=== PATIENT | male | born 1960 | race Caucasian/White ===

== ENCOUNTER 2020-10-17 17:49 | Outpatient (REF) | payer MEDICAID, SELFPAY ==
[2020-10-17 15:47] LABS: Calculated LDL 93 mg/dL (<100); Cholesterol 178 mg/dL (<200); HDL Cholesterol 30 mg/dL (40-60); Triglyceride 279 mg/dL (<150)
[2020-10-17 15:50] LABS: Hemoglobin A1C 5.6 % (<5.7)
== END 2020-10-17 17:50 | disposition home or self-care (01) ==
LOC: NCHCN 17:49
PROVIDERS: PCP Physician Assistant Medical; Visit Provider Nurse Practitioner Family
DX: E78.5 Hyperlipidemia, unspecified (principal); R73.9 Hyperglycemia, unspecified
CPT/HCPCS: 80061; 83036

== ENCOUNTER 2023-12-16 18:36 | Outpatient (REF) | payer MEDICAID, SELFPAY ==
--- OUTSIDE RECORDS SUMMARY | 2023-12-16 18:42 | XMS_ITS | Encounter Summary ---
Author Organization [facility] [place] [address] Care Team Providers Care Creative Manager Name Role Phone Sandro Orozco MD Primary Care Provider [phone] Encounter Details Date Type Department Care Team (Late st Contact Info) Description 05/19/2010 9:20 AM EST Office [place] [address] Carlotta Jefferson, [facility] [place] [address] Discharge Disposition: Home Social History Tobacco Use Types Packs/Day Years Used Date Smoking Tobacco: Never Assessed Sex and Gender Information Value Date Recorded Sex Assigned at Not on file Gender Identity Not on file Sexual Orientation Not on file documented as of this encounter Plan of Treatment Not on file documented as of this encounter Visit Diagnoses Not on filedocumented in this encounter Care Teams Creative Manager Relationship Specialty Start Date End Date Sandro Orozco MD [address] [place] [address] PCP - General 04/04/10 documented as of this encounter
--- OUTSIDE RECORDS SUMMARY | 2023-12-16 18:42 | XMS_ITS | Encounter Summary ---
Author Organization Formerly [facility] Address [facility] [place] [address] Care Team Providers Care Cellulose Insulation Helper Name Role Phone Sandro Orozco MD Primary Care Provider Encounter Details Date Type Department Care Team (Late st Contact Info) Description 10/26/2010 Abstract [facility] [address] [place] [phone] Alma Delia Faulkner, RN Social History Tobacco Use Types Packs/Day Years Used Date Smoking Tobacco: Never Assessed Sex and Gender Information Value Date Recorded Sex Assigned at Not on file Gender Identity Not on file Sexual Orientation Not on file documented as of this encounter Plan of Treatment Not on file documented as of this encounter Visit Diagnoses Not on filedocumented in this encounter Care Teams Cellulose Insulation Helper Relationship Specialty Start Date End Date Sandro Orozco MD [address] [place] [address] PCP - General 04/04/10 documented as of this encounter
--- OUTSIDE RECORDS SUMMARY | 2023-12-16 18:42 | XMS_ITS | Clinical Summary ---
Author Organization [facility] Address [facility] [place] [address] Care Team Providers Care Paperhanger Contractor Name Role Phone Sandro Orozco MD Primary Care Provider [phone] Allergies Active Allergy Reactions Criticality Noted Date Comments Codeine Phosphate Other (See Comments) nightmares Medications Medication Sig Dispensed Refills Start Date End Date Status SIMVASTATIN ORAL 05/19/2010 Active ibuprofen (ADVIL;MOTRIN) 800 mg tablet 05/19/2010 Active meloxicam (MOBIC) 7.5 mg tablet Take 7.5 mg by mouth daily. 7.5mg = 1 tablet Active hydroCODone-acetaminop hen (VICODIN) 5-500 mg per tablet Take 1 tablet by mouth as needed. 10/26/2010 Active Active Problems Problem Noted Date Diagnosed Date Depression 10/26/2010 COPD (chronic obstructive pulmonary disease) HTN (hypertension) 10/26/2010 Elevated cholesterol 10/26/2010 Overweight(278.02) 10/26/2010 ASCVD (arteriosclerotic card iovascular disease) - question of 10/26/2010 CIS - CC: review MRI 08/10/2010 Social History Tobacco Use Types Packs/Day Years Used Date Smoking Tobacco: Never Assessed Sex and Gender Information Value Date Recorded Sex Assigned at Not on file Gender Identity Not on file Sexual Orientation Not on file Plan of Treatment Health Maintenance Due Date Last Done Comments CT Colonography 1962 Colonoscopy 1962 Colorectal Cancer Screening 1962 FIT DNA 1962 FIT 1962 Sigmoidoscopy (10 year) with FIT yearly 1962 Sigmoidoscopy 1962 HIV screen 02/17/1980 Hepatitis C Screening 02/17/1980 Lipid Screening 02/17/1980 Tdap adult 1981 Tetanus vaccine 1981 Zoster vaccine (1 of 2) 02/17/2012 Advance Directive 2017 Covid-19 Vaccine (1 - 2022-24 season) 2023 Influenza (Flu) vaccine (1 o f 1 - Influenza standard series) 01/12/2024 Care Teams Paperhanger Contractor Relationship Specialty Start Date End Date Sandro Orozco MD [address] [place] [id number] PCP - General 04/04/10
--- OUTSIDE RECORDS SUMMARY | 2023-12-16 18:42 | XMS_ITS | Continuity of Care Document ---
Author Organization [facility] Address [address] [place] [address] Encounter [facility] Date(s): 09/10/23 - 09/10/23 [facility] [address] [place] [address] Encounter Diagnosis Acromioclavicular separation(Discharge Diagnosis) - 09/10/23 Discharge Disposition: Home or Self Care Attending Physician: Vel Ramos MD Admitting Physician: Vel Ramos MD Allergies, Adverse Reactions, Alerts Substance Reaction Severity Status Percocet Night terrors Moderate Active Assessment and Plan Extracted from: Title:ED Provider Note Author:Vel Ramos MD D ate:09/10/23 Assessment/Plan 1.??Acromioclavicular separation??S43.109A Ordered: Discharge Patient, 09/10/23 2:09:00 EDT, Home Independently, Constant Indicator ED Visit Follow Up [facility], Orders for future visit, 09/10/23 2:10:00 EDT, Acromioclavicular separation ?? Orders: morphine 2 mg/mL preservative-free injectable solution, 2 mg = 1 mL, IV Push, Soln-IV, every 2 hr for 5 doses, PRN pain, First Dose: 09/10/23 0:44:00 EDT, Stop Date: Limited # of times, Physician Stop, STAT Arm Sling Application, 09/10/23 2:08:00 EDT, Left Upper, Stop date 09/10/23 2:08:00 EDT Patient Education Acromioclavicular Separation Follow Up With When Contact Information [facility], Dieter Romero MD Within 1 to [address] [place] [address] [place] [address]- ?? Additional Instructions: Problem List No Known Problems Results Laboratory List Name Date Automated Diff 09/10/23 CBC w/ Diff 09/10/23 Comprehensive Metabolic Panel 09/10/23 Most recent to oldest [Reference Range]: 1 WBC [5.0-10.0 x10^3/mcL] 13.3 x10^3/mcL *HI* (09/10/23 12:40 AM) RBC [4.6-6.0 x10^6/mcL] 4.9 x10^6/mcL (09/10/23 12:40 AM) Neutro Auto [40.0-75.0 %] 76.8 % *HI* (09/10/23 12:40 AM) Lymph Auto [20.0-50.0 %] 16.4 % *LOW* (09/10/23 12:40 AM) [place] Auto [2.0-15.0 %] 4.9 % (09/10/23 12:40 AM) Basophil Auto [0.0-1.0 %] 0.5 % (09/10/23 12:40 AM) BUN [7-18 mg/dL] 10 mg/dL (09/10/23 12:40 AM) Glucose Level [74-106 mg/dL] 148 mg/dL *HI* (09/10/23 12:40 AM) Potassium Level [3.5-5.1 mmol/L] 3.4 mmo l/L *LOW* (09/10/23 12:40 AM) MCV [80.0-96.0 fL] 85.8 fL (09/10/23 12:40 AM) AST [15-37 unit/L] 25 unit/L (09/10/23 12:40 AM) ALT [16-63 unit/L] 30 unit/L (09/10/23 12:40 AM) MCHC [31.0-35.0 g/dL] 35.2 g/dL *HI* (09/10/23 12:40 AM) Sodium Level [136-145 mmol/L] 136 mmol/L (09/10/23 12:40 AM) Hct [41.0-51.0 %] 41.8 % (09/10/23 12:40 AM) Calcium Level [8.5-10.1 mg/dL] 9.0 mg/dL (09/10/23 12:40 AM) Albumin Level [3.4-5.0 g/dL] 3.6 g/dL (09/10/23 12:40 AM) Protein Total [6.4-8.2 g/dL] 7.0 g/dL (09/10/23 12:40 AM) MCH [26.0-32.0 pg] 30.2 pg (09/10/23 12:40 AM) Neutro Absolute 10.2 x10^3/mcL *NA* (09/10/23 12:40 AM) Bilirubin Total [0.2-1.0 mg/dL] 0.5 mg/d L (09/10/23 12:40 AM) Hgb [14.0-18.0 g/dL] 14.7 g/dL (09/10/23 12:40 AM) Alk Phos [46-146 unit/L] 104 unit/L (09/10/23 12:40 AM) Platelets [130-450 x10^3/mcL] 252 x10^3/ mcL (09/10/23 12:40 AM) CO2 [21-32 mmol/L] 27 mmol/L (09/10/23 12:40 AM) eGFR Non-AA [>=60] 78 (09/10/23 12:40 AM) eGFR AA [>=60] 78 (09/10/23 12:40 AM) Chloride Level [98-107 mmol/L] 100 mmol/ L (09/10/23 12:40 AM) RDW-CV [11.5-14.5 %] 12.2 % (09/10/23 12:40 AM) Imm Gran Auto [0.0-0.9 %] 0.3 % (09/10/23 12:40 AM) Slide Review Not Indicated (09/10/23 12:40 AM) Creatinine Level [0.70-1.30 mg/dL] 1.08 mg/dL (09/10/23 12:40 AM) Eos, Auto [1.0-6.0 %] 1.1 % (09/10/23 12:40 AM) Vital Signs Most recent to oldest [Reference Range]: 1 Temperature Temporal Artery [36-38 Deg C ] 36.4 Deg C (09/10/23 12:32 AM) Heart Rate Monitored [60-100 bpm] 78 bpm (09/10/23 12:32 AM) Respiratory Rate [12-24 br/min] 14 br/mi n (09/10/23 12:32 AM) Blood Pressure [90-140/60-90 mmHg] 124/7 4mmHg (09/10/23 12:32 AM) Mean Arterial Pressure, Cuff [65-140 mmH g] 91 mmHg (09/10/23 12:32 AM) Weight 81.65 kg (09/10/23 12:32 AM) Weight Dosing 81.650 kg (09/10/23 12:32 AM) Social History Social History Type Response Tobacco Former tobacco user Tobacco Use:. 1 Sex Male 1chewing tobacco. Hospital Discharge Instructions Patient Education 09/10/2023 01:09:23 Acromioclavicular Separation Acromioclavicular Separation A shoulder separation (acromioclavicular separation) is an injury to the ligaments between the top of the shoulder blade (acromion) and the collarbone (clavicle). Ligaments are tissues that connect bones to each other. In this injury, the ligaments may be stretched, partially torn, or completely torn. ??? A stretched ligament may not cause much pain, and it does not move the collarbone out of place.A stretched ligament looks normal on an X-ray. ??? A partial tear causes an injury that is a bit worse, and it may move the collarbone slightly out of place. ??? A complete tear causes serious injury. The surrounding shoulder ligaments are completely torn. This moves the collarbone out of position and creates a bad shape (deformity) of the shoulder. What are the causes? Common causes of this condition include: ??? Falling on the shoulder. ??? Receiving a hard, direct hit to the top of the shoulder. ??? Falling on an outstretched arm. What increases the risk? You may be at greater risk of a shoulder separation if you: ??? Are male. ??? Are younger than 35 years of age. ??? Play a contact sport, such as football or hockey. What are the signs or symptoms? The most common symptom of this condition is pain on the top of the shoulder after falling on it orreceiving a hard, direct hit to it. Other symptoms include: ??? A change in the shape of the shoulder (deformity). ??? Swelling of the shoulder. ??? Decreased ability to move the shoulder. ??? Bruising on top of the shoulder. How is this diagnosed? Your health care provider may suspect a shoulder separation based on your symptoms and the details of a recent injury you experienced. The condition will be diagnosed based on: ??? A physical exam. Your provider may: ??? Press on your shoulder. ??? Test the movement of your shoulder. ??? Ask you to hold a weight in your hand to see if the separation increases. ??? Imaging tests, such as: ??? X-rays. ??? MRI. How is this treated? Treatment for this condition depends on the cause and severity of the injury. ??? A shoulder separation caused by a stretched ligament may require 2???12 weeks of the following: ??? Wearing a sling. ??? Taking medicines to help relieve pain. ??? Applying cold packs to your shoulder. ??? Physical therapy. If needed, a physical therapist will teach you to do daily exercises to improve strength and prevent stiffness in your shoulder. ??? Surgery may be needed for severe injuries that include breaks (fractures) in a bone, or injuries that do not get better with nonsurgical treatments. To help with healing, you will need to keep your joint in place for a period of time (immobilization) and do physical therapy. Follow these instructions at home: Medicines ??? Take mmkn-cqh-xhmvnvo and prescription medicines only as told by your health care provider. ??? Ask your health care provider if the medicine prescribed to you: ??? Requires you to avoid driving or using machinery. ??? Can cause constipation. You may need to take these actions to prevent or treat constipation: ??? Drink enough fluid to keep your urine pale yellow. ??? Take rhjc-git-kqaubky or prescription medicines. ??? Eat foods that are high in fiber, such as beans, whole grains, and fresh fruits and vegetables. ??? Limit foods that are high in fat and processed sugars, such as fried or sweet foods. If you have a sling: ??? Wear the sling as told by your health care provider. Remove it only as told by your health careprovider. ??? Check the skin around the sling every day. Tell your health care provider about any concerns. ??? Loosen the sling if your fingers tingle, become numb, or turn cold and blue. ??? Keep the sling clean. ??? If the sling is not waterproof: ??? Do not let it get wet. ??? Cover it with a watertight covering when you take a bath or shower. Managing pain, stiffness, and swelling ??? If directed, put ice on the top of your shoulder. To do this: ??? Put ice in a plastic bag. ??? Place a towel between your skin and the bag. ??? Leave the ice on for 20 minutes, 2???3 times a day. ??? If your skin turns bright red, remove the ice right away to prevent skin damage. The risk of skin damage is higher if you cannot feel pain, heat, or cold. ??? Do not do any activities that make your pain worse. Activity ??? You may have to avoid lifting. Ask your health care provider how much you can safely lift. ??? Rest your shoulder. Avoid activities that take a lot of effort for as long as told by your health care provider. ??? Return to your normal activities as told by your health care provider. Ask your health care provider what activities are safe for you. ??? Do tixdo-me-jpmftl exercises as told by your health care provider. General instructions ??? Do not use any products that contain nicotine or tobacco. These products include cigarettes, chewing tobacco, and vaping devices, such as e-cigarettes. These can delay healing. If you need help quitting, ask your health care provider. ??? Keep all follow-up visits. Your health care provider will monitor how your injury is healing and adjust your activities. These may include visits for physical therapy. Contact a health care provider if: ??? Pain medicine is not relieving your pain. ??? Your pain and stiffness are not improving after 2 weeks. ??? You are not able to do your physical therapy exercises because of pain or stiffness. Get help right away if: ??? Your arm on the injured side feels cold or numb. ??? Your skin or fingers on the arm on the injured side turn blue or miller. Summary ??? A shoulder separation (acromioclavicular separation) is an injury to the ligaments between the top of the shoulder blade (acromion) and the collarbone (clavicle). ??? The ligaments may be stretched, partially torn, or completely torn. ??? Common causes of a shoulder separation include falling on or receiving a hard, direct hit to the top of the shoulder. Falling with an outstretched arm may also cause this injury. ??? Rest your shoulder. Avoid activities that take a lot of effort for as long as told by your health care provider. This information is not intended to replace advice given to you by your health care provider. Make sure you discuss any questions you have with your health care provider. Document Revised: 08/16/2022 Document Reviewed: 08/16/2022 [employer] Patient Education ?? 2022 [employer]. Follow Up Care 09/10/2023 00:30:24 [facility] Address: [address] [place] [id number]- When:1 to 2 weeks Physician Emergency department Note * Vel Ramos MD: PERFORM Event Display: ED Note Physician Authored Date: [id number] AMANDA ORDOÑEZ :1960 Age:63 years Sex:Male Visit Date:09/10/2023 Basic Information Time Seen: Vel Ramos MD / 09/10/2023 00:30 Chief Complaint BIBEMS from home walking up stairs fell onto ??left shoulder striking hand rail complaint of left shoulder pain. unknown LOC denies neck tenderness. c-collar placed on arrival. fentanyl 100 mcg givenR deltoid History Of Present Illness: Patient is a 63-year-old male history of hyperlipidemia presenting with??a fall injury.?? Patient states that he been out for approximately 36 hours when he was walking up the bed??with his dog and he tripped and fell. ??Unsure exactly how he fell??feels he may have hit the banister with his left shoulder and??fell over the banister onto the floor. ??He does not remember the events that occurred??some believe he hit his head or lost consciousness but does not fully remember??given that he is tired.?? Main complaint is for left shoulder pain. ??He received 100 mcg of fentanyl??IM prior to arrival for the pain. Review of Systems: ROS as per HPI Physical Exam Vitals & Measurements T:??36.4?C ??(Temporal Artery)?? HR:??78??(Monitored)?? RR:??14?? BP:??124/74?? SpO2:??100%?? WT:??81.65??kg?? Pain Score:??3?? O2 Therapy:??Room air?? General: Alert and oriented, drowsy but answers questions appropriately Eye: PERRL, EOMI, ??Normal ??conjunctiva HENT: Normocephalic, atraumatic Neck: Supple, no midline tenderness noted Lungs: Clear to auscultation bilaterally, satting well on room air, no respiratory distress Heart: ??Normal??rate, ??Regular rhythm, ??No murmur Abdomen: Soft, non-tender, non-distended, ??Normal ??bowel sounds Musculoskeletal:??Deformity noted to the left shoulder limited range of motion secondary to pain, all other extremities with no obvious signs of trauma full range of motion nontender Skin: Skin is warm and dry Neurologic: Awake, alert and oriented X4 Medical Decision Making: Patient is a 63-year-old male presenting with a fall injury.?? Mechanical in nature will check basic labs, x-ray, CT of head and C-spine??and closely monitor here. ??States that his pain is very improved at this time. Procedure No Qualifying Data Reexamination/Reevaluation CT head and neck were negative. ??Able to clear his c-collar.?? X-rays concerning for possible AC??separation which would explain the patient's pain. ??Will place in a sling??and discharged to follow-up as an outpatient. ??He understands and agrees to this plan. Assessment/Plan 1.??Acromioclavicular separation??S43.109A Ordered: Discharge Patient, 09/10/23 2:09:00 EDT, Home Independently, Constant Indicator ED Visit Follow Up [facility], Orders for future visit, 09/10/23 2:10:00 EDT, Acromioclavicular separation ?? Orders: morphine 2 mg/mL preservative-free injectable solution, 2 mg = 1 mL, IV Push, Soln-IV, every 2 hr for 5 doses, PRN pain, First Dose: 09/10/23 0:44:00 EDT, Stop Date: Limited # of times, Physician Stop, STAT Arm Sling Application, 09/10/23 2:08:00 EDT, Left Upper, Stop date 09/10/23 2:08:00 EDT Patient Education Acromioclavicular Separation Follow Up With When Contact Information [facility], Dieter Romero MD Within 1 to [address] [place] [address] [place] [address]- Additional Instructions: Problem List/Past Medical History Ongoing No chronic problems Historical No qualifying data Medication Administration Given Ofirmev, 1000 mg, IV Piggyback Toradol, 15 mg, IV Push Allergies Percocet??(Night terrors) Social History Electronic Cigarette/Vaping Electronic Cigarette Use: Never. Tobacco Former tobacco user Tobacco Use:.- Comments: chewing tobacco. Referral Orders ED Visit Follow Up [facility] Orders for future visit, 09/10/23 2:10:00 EDT, Acromioclavicular separation Lab Results CBC and Differential?? LATEST RESULTS?? WBC?? 09/10/23 00:40?? 13.3 ??High?? RBC?? 09/10/23 00:40?? 4.9?? Hgb?? 09/10/23 00:40?? 14.7?? Hct?? 09/10/23 00:40?? 41.8?? MCV?? 09/10/23 00:40?? 85.8?? MCH?? 09/10/23 00:40?? 30.2?? MCHC?? 09/10/23 00:40?? 35.2 ??High?? RDW-CV?? 09/10/23 00:40?? 12.2?? Platelets?? 09/10/23 00:40?? 252?? Neutro Auto?? 09/10/23 00:40?? 76.8 ??High?? Lymph Auto?? 09/10/23 00:40?? 16.4 ??Low?? [place] Auto?? 09/10/23 00:40?? 4.9?? Eos, Auto?? 09/10/23 00:40?? 1.1?? Basophil Auto?? 09/10/23 00:40?? 0.5?? Imm Gran Auto?? 09/10/23 00:40?? 0.3?? Neutro Absolute?? 09/10/23 00:40?? 10.2?? Slide Review?? 09/10/23 00:40?? Not Indicated? Routine Chemistry?? LATEST RESULTS?? Sodium Level?? 09/10/23 00:40?? 136?? Potassium Level?? 09/10/23 00:40?? 3.4 ??Low?? Chloride Level?? 09/10/23 00:40?? 100?? CO2?? 09/10/23 00:40?? 27?? Alk Phos?? 09/10/23 00:40?? 104?? AST?? 09/10/23 00:40?? 25?? ALT?? 09/10/23 00:40?? 30?? BUN?? 09/10/23 00:40?? 10?? Glucose Level?? 09/10/23 00:40?? 148 ??High?? Creatinine Level?? 09/10/23 00:40?? 1.08?? eGFR AA?? 09/10/23 00:40?? 78?? eGFR Non-AA?? 09/10/23 00:40?? 78?? Calcium Level?? 09/10/23 00:40?? 9.0?? Protein Total?? 09/10/23 00:40?? 7.0?? Albumin Level?? 09/10/23 00:40?? 3.6?? Bilirubin Total?? 09/10/23 00:40?? 0.5? Electronically Signed on 09/10/23 02:11 AM Vel Ramos MD * Vel Ramos MD: PERFORM Event Display: ED Note Physician Authored Date: [id number] AMANDA ORDOÑEZ :1960 Age:63 years Sex:Male Visit Date:09/10/2023 Discharge Instructions We would like to thank you for allowing us to assist you with your healthcare needs. The following includes patient education materials and information regarding your injury/illness. Diagnosis from Today's Visit Acromioclavicular separation Discharge Vitals Temperature??(Temporal Artery) 97.5 ??F (36.4 ??C) Heart Rate??(Monitored) 78 Respiratory Rate?? 14 Blood Pressure?? 124/74?? SpO2?? 100% Weight?? 180.04 lb (81.65 kg) Allergies Percocet??(Night terrors) What to Do Next Instructions from Your Care Team Today you were seen in the emergency department for your shoulder injury. We did a thorough exam, as well as a CAT scan as well as x-rays. Your results??showed that you may have an AC joint separation, because of this you can be discharged to follow up with your primary care physician??and a orthopedist as soon as you are able to. Please return to the emergency department for any new or worsening symptoms. You Need to Schedule the Following Appointments Follow Up with??[facility] When:??Within 1 to 2 weeks Where: [address] [place] [address] [place] [address] You were treated today on an emergency basis; it may be temple to contact your primary care provider to notify them of your visit today. You may have been referred to your regular doctor or a specialist, please follow up as instructed. If your condition worsens or you can't get in to see the doctor, contact the Emergency Department. Education Materials Acromioclavicular Separation A shoulder separation (acromioclavicular separation) is an injury to the ligaments between the top of the shoulder blade (acromion) and the collarbone (clavicle). Ligaments are tissues that connect bones to each other. In this injury, the ligaments may be stretched, partially torn, or completely torn. ? A stretched ligament may not cause much pain, and it does not move the collarbone out of place. A stretched ligament looks normal on an X-ray. ? A partial tear causes an injury that is a bit worse, and it may move the collarbone slightly out ofplace. ? A complete tear causes serious injury. The surrounding shoulder ligaments are completely torn. Thismoves the collarbone out of position and creates a bad shape (deformity) of the shoulder. What are the causes? Common causes of this condition include: ? Falling on the shoulder. ? Receiving a hard, direct hit to the top of the shoulder. ? Falling on an outstretched arm. What increases the risk? You may be at greater risk of a shoulder separation if you: ? Are male. ? Are younger than 35 years of age. ? Play a contact sport, such as football or hockey. What are the signs or symptoms? The most common symptom of this condition is pain on the top of the shoulder after falling on it orreceiving a hard, direct hit to it. Other symptoms include: ? A change in the shape of the shoulder (deformity). ? Swelling of the shoulder. ? Decreased ability to move the shoulder. ? Bruising on top of the shoulder. How is this diagnosed? Your health care provider may suspect a shoulder separation based on your symptoms and the details of a recent injury you experienced. The condition will be diagnosed based on: ? A physical exam. Your provider may: ? Press on your shoulder. ? Test the movement of your shoulder. ? Ask you to hold a weight in your hand to see if the separation increases. ? Imaging tests, such as: ? X-rays. ? MRI. How is this treated? Treatment for this condition depends on the cause and severity of the injury. ? A shoulder separation caused by a stretched ligament may require 2???12 weeks of the following: ? Wearing a sling. ? Taking medicines to help relieve pain. ? Applying cold packs to your shoulder. ? Physical therapy. If needed, a physical therapist will teach you to do daily exercises to improve strength and prevent stiffness in your shoulder. ? Surgery may be needed for severe injuries that include breaks (fractures) in a bone, or injuries that do not get better with nonsurgical treatments. To help with healing, you will need to keep your joint in place for a period of time (immobilization) and do physical therapy. Follow these instructions at home: Medicines ? Take ikem-hsv-dzbfcms and prescription medicines only as told by your health care provider. ? Ask your health care provider if the medicine prescribed to you: ? Requires you to avoid driving or using machinery. ? Can cause constipation. You may need to take these actions to prevent or treat constipation: ? Drink enough fluid to keep your urine pale yellow. ? Take bvur-ylu-mhifrgm or prescription medicines. ? Eat foods that are high in fiber, such as beans, whole grains, and fresh fruits and vegetables. ? Limit foods that are high in fat and processed sugars, such as fried or sweet foods. If you have a sling: ? Wear the sling as told by your health care provider. Remove it only as told by your health care provider. ? Check the skin around the sling every day. Tell your health care provider about any concerns. ? Loosen the sling if your fingers tingle, become numb, or turn cold and blue. ? Keep the sling clean. ? If the sling is not waterproof: ? Do not let it get wet. ? Cover it with a watertight covering when you take a bath or shower. Managing pain, stiffness, and swelling ? If directed, put ice on the top of your shoulder. To do this: ? Put ice in a plastic bag. ? Place a towel between your skin and the bag. ? Leave the ice on for 20 minutes, 2???3 times a day. ? If your skin turns bright red, remove the ice right away to prevent skin damage. The risk of skin damage is higher if you cannot feel pain, heat, or cold. ? Do not do any activities that make your pain worse. Activity ? You may have to avoid lifting. Ask your health care provider how much you can safely lift. ? Rest your shoulder. Avoid activities that take a lot of effort for as long as told by your health care provider. ? Return to your normal activities as told by your health care provider. Ask your health care provider what activities are safe for you. ? Do waymb-cj-hdnqxr exercises as told by your health care provider. General instructions ? Do not use any products that contain nicotine or tobacco. These products include cigarettes, chewing tobacco, and vaping devices, such as e-cigarettes. These can delay healing. If you need help quitting, ask your health care provider. ? Keep all follow-up visits. Your health care provider will monitor how your injury is healing and adjust your activities. These may include visits for physical therapy. Contact a health care provider if: ? Pain medicine is not relieving your pain. ? Your pain and stiffness are not improving after 2 weeks. ? You are not able to do your physical therapy exercises because of pain or stiffness. Get help right away if: ? Your arm on the injured side feels cold or numb. ? Your skin or fingers on the arm on the injured side turn blue or miller. Summary ? A shoulder separation (acromioclavicular separation) is an injury to the ligaments between the top of the shoulder blade (acromion) and the collarbone (clavicle). ? The ligaments may be stretched, partially torn, or completely torn. ? Common causes of a shoulder separation include falling on or receiving a hard, direct hit to the top of the shoulder. Falling with an outstretched arm may also cause this injury. ? Rest your shoulder. Avoid activities that take a lot of effort for as long as told by your health care provider. This information is not intended to replace advice given to you by your health care provider. Make sure you discuss any questions you have with your health care provider. Document Revised: 08/16/2022 Document Reviewed: 08/16/2022 Else[employer] Patient Education ?? 2022 [employer] Tests Performed Medications and Immunizations Administered Given Ofirmev, 1000 mg, IV Piggyback Toradol, 15 mg, IV Push Lab Test Name Test Result Date/Time WBC 13.3 x10^3/mcL 09/10/2023 00:40 EDT RBC 4.9 x10^6/mcL 09/10/2023 00:40 EDT Hgb 14.7 g/dL 09/10/2023 00:40 EDT Hct 41.8 % 09/10/2023 00:40 EDT MCV 85.8 fL 09/10/2023 00:40 EDT MCH 30.2 pg 09/10/2023 00:40 EDT MCHC 35.2 g/dL 09/10/2023 00:40 EDT RDW-CV 12.2 % 09/10/2023 00:40 EDT Platelets 252 x10^3/mcL 09/10/2023 00:40 EDT Neutro Auto 76.8 % 09/10/2023 00:40 EDT Lymph Auto 16.4 % 09/10/2023 00:40 EDT [place] Auto 4.9 % 09/10/2023 00:40 EDT Eos, Auto 1.1 % 09/10/2023 00:40 EDT Basophil Auto 0.5 % 09/10/2023 00:40 EDT Imm Gran Auto 0.3 % 09/10/2023 00:40 EDT Neutro Absolute 10.2 x10^3/mcL 09/10/2023 00:40 EDT Slide Review Not Indicated 09/10/2023 00:40 EDT Sodium Level 136 mmol/L 09/10/2023 00:40 EDT Potassium Level 3.4 mmol/L 09/10/2023 00:40 EDT Chloride Level 100 mmol/L 09/10/2023 00:40 EDT CO2 27 mmol/L 09/10/2023 00:40 EDT Alk Phos 104 unit/L 09/10/2023 00:40 EDT AST 25 unit/L 09/10/2023 00:40 EDT ALT 30 unit/L 09/10/2023 00:40 EDT BUN 10 mg/dL 09/10/2023 00:40 EDT Glucose Level 148 mg/dL 09/10/2023 00:40 EDT Creatinine Level 1.08 mg/dL 09/10/2023 00:40 EDT eGFR AA 78 09/10/2023 00:40 EDT eGFR Non-AA 78 09/10/2023 00:40 EDT Calcium Level 9.0 mg/dL 09/10/2023 00:40 EDT Protein Total 7.0 g/dL 09/10/2023 00:40 EDT Albumin Level 3.6 g/dL 09/10/2023 00:40 EDT Bilirubin Total 0.5 mg/dL 09/10/2023 00:40 EDT Patient/Electrical Development Engineer Signature Patient Name:AMANDA ORDOÑEZ I have received this information and my questions have been answered. Patient/Electrical Development Engineer Name: Patient/Electrical Development Engineer Signature: Relationship to Patient: Witness Name/Signature: Date: Electronically Signed on 09/10/23 02:10 AM Vel Ramos MD Patient Care team information Care Team Related Persons Name: NEHEMIAS ORDOÑEZ Address: [address], [id number] Name: SEJAL ORDOÑEZ
--- OUTSIDE RECORDS SUMMARY | 2023-12-16 18:42 | XMS_ITS | Encounter Summary ---
[place] [address] Care Team Providers Care Cylinder Handler Name Role Phone Sandro Orozco MD Primary Care Provider [phone] Encounter Details Date Type Department Care Team (Late st Contact Info) Description 05/19/2010 9:00 AM EST Office Visit [place] [address] Social History Tobacco Use Types Packs/Day Years Used Date Smoking Tobacco: Never Assessed Sex and Gender Information Value Date Recorded Sex Assigned at Not on file Gender Identity Not on file Sexual Orientation Not on file documented as of this encounter Plan of Treatment Not on file documented as of this encounter Visit Diagnoses Not on filedocumented in this encounter Care Teams Cylinder Handler Relationship Specialty Start Date End Date Sandro Orozco MD [address] [place] [address] PCP - General 04/04/10 documented as of this encounter
--- OUTSIDE RECORDS SUMMARY | 2023-12-16 18:42 | XMS_ITS | Encounter Summary ---
Author Organization [facility] [place] [address] Care Team Providers Care Technology Sales Specialist Name Role Phone Sandro Orozco MD Primary Care Provider Encounter Details Date Type Department Care Team (Late st Contact Info) Description 08/10/2010 1:30 PM EDT Office Visit [address] [address] Social History Tobacco Use Types Packs/Day Years Used Date Smoking Tobacco: Never Assessed Sex and Gender Information Value Date Recorded Sex Assigned at Not on file Gender Identity Not on file Sexual Orientation Not on file documented as of this encounter Plan of Treatment Not on file documented as of this encounter Visit Diagnoses Not on filedocumented in this encounter Care Teams Technology Sales Specialist Relationship Specialty Start Date End Date Sandro Orozco MD [address] [place] [address] PCP - General 04/04/10 documented as of this encounter
--- OUTSIDE RECORDS SUMMARY | 2023-12-16 18:42 | XMS_ITS | Encounter Summary ---
Author Organization [facility] [place] [address] Care Team Providers Care Professor Of Vegetable Science Name Role Phone Sandro Orozco MD Primary Care Provider [phone] Encounter Details Date Type Department Care Team (Late st Contact Info) Description 06/12/2010 Orders [place] [address] Carlotta Jefferson APRN [facility] [place] [address] Social History Tobacco Use Types Packs/Day Years Used Date Smoking Tobacco: Never Assessed Sex and Gender Information Value Date Recorded Sex Assigned at Not on file Gender Identity Not on file Sexual Orientation Not on file documented as of this encounter Plan of Treatment Not on file documented as of this encounter Procedures Procedure Name Priority Date/Time Associated Diagnosis Comments FILM LIBRARY STORAGE ONLY MR SPINE Routine 06/12/2010 1:20 PM EST documented in this encounter Results * FILM LIBRARY- STORAGE ONLY MR SPINE (06/12/2010 1:20 PM EST) Anatomical Region Laterality Modality Other 06/12/2010 1:20 PM EST Narrative 07/02/2013 11:08 PM EST This is a non-reportable exam. Procedure Note Aaron Baez - 07/02/2013 This is a non-reportable exam. Carlotta Jefferson APRN [employer] FILM LIBRARY OR DERABLES documented in this encounter Visit Diagnoses Not on filedocumented in this encounter Care Teams Professor Of Vegetable Science Relationship Specialty Start Date End Date Sandro Orozco MD [address] [place] [id number] PCP - General 04/04/10 documented as of this encounter
--- OUTSIDE RECORDS SUMMARY | 2023-12-16 18:42 | XMS_ITS | Encounter Summary ---
Author Organization [facility] [place] [address] Care Team Providers Care Api Product Manager Name Role Phone Sandro Orozco MD Primary Care Provider Encounter Details Date Type Department Care Team (Late st Contact Info) Description 08/10/2010 1:50 PM EDT Office [place] [address] Carlotta Jefferson, [facility] [place] [address] Discharge Disposition: Home Social History Tobacco Use [...] on filedocumented in this encounter Care Teams Api Product Manager Relationship Specialty Start Date End Date Sandro Orozco MD [address] [place] [address] PCP - General 04/04/10 documented as of this encounter
[2023-12-16 20:23] LABS: ALT 36 U/L (16-63); AST 25 U/L (15-37); Albumin 3.7 g/dL (3.4-5.0); Alkaline Phosphatase 107 U/L (46-116); Anion Gap 8.4 mmol/L (3-11); BUN 10 mg/dL (7-18); Bilirubin, Total 0.55 mg/dL (0.2-1.0); CO2 27.6 mmol/L (21.0-32.0); CREATININE 0.9 mg/dL (0.70-1.30); Calcium 8.9 mg/dL (8.5-10.1); Calculated LDL 27 mg/dL (<100); Chloride 106 mmol/L (98-107); Cholesterol 81 mg/dL (<200); Estimated GFR 97.17 (mL/min/1.73m2); Glucose 132 mg/dL (74-106); HDL Cholesterol 40 mg/dL (40-60); Potassium 3.9 mmol/L (3.5-5.1); Sodium 142 mmol/L (136-145); Triglyceride 71 mg/dL (<150)
== END 2023-12-16 18:37 | disposition home or self-care (01) ==
LOC: NCHCN 18:36
PROVIDERS: PCP Physician Assistant Medical; Visit Provider Nurse Practitioner Family
DX: E78.5 Hyperlipidemia, unspecified (principal)
CPT/HCPCS: 80053; 80061

== ENCOUNTER 2025-03-30 14:43 | Outpatient (REF) | payer MEDICAID, SELFPAY ==
[2025-03-30 19:27] LABS: Abs Immature Grans 0.02 10^3/uL (0.0-0.06); HCT 43.1 % (40.0-50.0); HGB 15.1 g/dL (13.5-17.5); Immature Grans % 0.2 %; MCH 30.1 pg (27.0-33.0); MCHC 35.0 % (32.0-36.0); MCV 86 fL (80-95); MPV 12.1 fL (8.0-11.0); Platelet Count 197 10^3/uL (130-400); RBC 5.01 10^6/uL (4.36-5.78); RDW 12.2 % (11.8-14.1); RDW-SD 38.0 fL; WBC 8.28 10^3/uL (4.4-10.8)
[2025-03-30 19:40] LABS: ALT 24 U/L (10-49); AST 21 U/L (<34); Albumin 4.4 g/dL (3.4-5.0); Alkaline Phosphatase 91 U/L (46-116); Anion Gap 7 mmol/L (3-11); BUN 12 mg/dL (9-23); Bilirubin, Total 0.80 mg/dL (0.2-1.2); CO2 30.0 mmol/L (20.0-31.0); Calcium 9.0 mg/dL (8.3-10.6); Chloride 104 mmol/L (98-107); Cholesterol 92 mg/dL (<200); Glucose 105 mg/dL (74-106); HDL Cholesterol 36 mg/dL (>40); Potassium 4.1 mmol/L (3.5-5.1); Sodium 141 mmol/L (136-145); Total Protein 7.0 g/dL (5.7-8.2)
[2025-03-30 20:06] LABS: Hemoglobin A1C 6.0 % (<5.7)
[2025-03-31 17:56] LABS: PSA, Screening 0.7 ng/mL (<=4.5)
== END 2025-03-30 14:44 | disposition home or self-care (01) ==
LOC: LBN 14:43
PROVIDERS: PCP Physician Assistant Medical; Visit Provider Nurse Practitioner Family
DX: Z00.00 Encounter for general adult medical examination without abnormal findings (principal); Z13.1 Encounter for screening for diabetes mellitus
CPT/HCPCS: 80053; 80061; 84153; 83036; 85025